=== PATIENT | female | born 1990 | race Caucasian/White ===

== ENCOUNTER 2022-07-03 20:34 | Emergency (ER) | payer SELFPAY ==
[~2022-07-03] VITALS: Ht 157.5 cm; Wt 70.3 kg
[2022-07-03 20:49] VITALS: BP 132/87
--- NOTE | 2022-07-03 20:50 | NUR ---
TO LOBBY A/W BED AMBULATORY WITH THE KIDS.
--- NOTE | 2022-07-03 21:20 | NUR ---
SEEN AND EXAMINED BY MELISSA
--- NOTE | 2022-07-03 23:30 | NUR ---
all results back noted by ERMD and for D/C
[2022-07-03 23:45] VITALS: BP 132/87
--- NOTE | 2022-07-03 23:45 | NUR ---
Patient discharged with v/s stable. Written and verbal after care instructions given and explained. Patient verbalized understanding. Ambulatory with steady gait. All questions addressed prior to discharge. Advised to follow up with PMD.
== END 2022-07-03 23:45 | disposition home or self-care (01) ==
LOC: MED 20:34
DX: M54.2 Cervicalgia (principal); M25.522 Pain in left elbow
CPT/HCPCS: 72040; 99283